=== PATIENT | male | born 1975 | race Hispanic/Latino ===

== ENCOUNTER 2021-03-15 19:25 | Emergency (ER) | payer OTHER, SELFPAY ==
[2021-03-15 19:30] VITALS: BP 161/90; PULSE 67; RESP 16; TEMP 36.1; O2SAT 100; BMI 26.6
--- NOTE | 2021-03-15 20:08 | DI.RAD.S_ITS ---
PROCEDURE: XR HAND RT MIN 3V INDICATIONS: right hand caught in machine, lac 2/3rd digit TECHNIQUE: Three views of the hand(s) acquired. COMPARISON: None. FINDINGS: Bones: Nondisplaced transverse fracture through the 2nd middle phalanx with slight distraction of fracture fragments. There appears to be overlying soft tissue laceration. Proximal and distal interphalangeal joint are intact. No other fractures.. Carpal bones are normally aligned. No suspicious bony lesions. Soft tissues: No suspicious soft tissue calcifications. No radiodense foreign bodies. IMPRESSION: 1. Open fracture of the 2nd middle phalanx. Dictated by: Nenita Turner M.D. on 03/15/2021 at 21:01 Approved by: Nenita Turner M.D. on 03/15/2021 at 21:02
--- NOTE | 2021-03-15 20:09 | PC.NURSE ---
gloves cut off in triage, bleeding controlled, loose gauze placed on 2/3rd digit. CMS intact, increase pain with any movement
[2021-03-15 22:35] VITALS: BP 150/80; PULSE 68; RESP 18; O2SAT 98
[2021-03-15] MEDS: TET,DIPH,PERTUSS(ACELL),VAC/PF 0.5 ML SYRINGE IM (22:47)
--- NOTE | 2021-03-16 00:05 | ED_ITS ---
HPI - Wound/Laceration General Chief Complaint: Wound/Laceration Stated Complaint: RIGHT HAND TWO FINGER LACERATION CUT Time Seen by Provider: 03/16/21 00:05 Mode of arrival: Ambulatory History of Present Illness HPI narrative: 45-year-old right-handed gentleman with no specific medical history was at work this evening at [employer] and got his right hand stuck in 1 of the machines with sharp blades. The blades cut through 2 layers of gloves cut deeply into the right index finger and a superficial cut to the dorsum of the right middle finger. Related Data Previous Rx's Medication Instructions Recorded cephalexin 500 mg capsule 500 mg PO TID #21 cap 03/16/21 oxycodone-acetaminophen 5 mg-325 1 tab PO Q6H PRN #12 tab 03/16/21 mg tablet Allergies Allergy/AdvReac Type Severity Reaction Status Date / Time No Known Drug Allergies Allergy Verified 03/15/21 20:08 Review of Systems Review of Systems Narrative: Pertinent positive and negative findings as per HPI Remainder of review of systems is otherwise unremarkable for Constitutional: Fevers, chills, weakness ENT: No sore throat, neck pain, ear pain CV: Chest pain, palpitations, Respiratory: Cough, wheeze, dyspnea GI: Nausea, vomiting, diarrhea, : Dysuria, hematuria, Patient History Social History Smoking Status: Never smoker Smoking Status: Never smoker Substance Use Type: does not use Exam Narrative Exam Narrative: General: Alert appropriate in no acute distress Respiratory: Able to speak in full sentences, no obvious respiratory distress Skin: No obvious rashes, warm and dry Neurologic: Grossly intact no obvious asymmetries or abnormalities Psych: appropriate insight and affect, cooperative Extremities: Right index finger with dorsal cut all the way through extensor tendons and middle phalanx. He still has good blood flow to the tip of his finger and full sensation to the tip of his finger. Middle finger with superficial laceration to the dorsum going over the D IP joint but not involving the joint the nail bed or any extensor tendons. Neurovascularly intact with this finger. No other injuries are appreciated Initial Vital Signs Initial Vital Signs: Vital Signs Temperature 97.0 F L 03/15/21 19:30 Pulse Rate 67 03/15/21 19:30 Respiratory Rate 16 03/15/21 19:30 Blood Pressure 161/90 H 03/15/21 19:30 Pulse Oximetry 100 03/15/21 19:30 Procedures Laceration Repair Right middle finger: Time of procedure: 07:14 Site: hand Side (If applicable): right Size (cm): 2.5 Description: linear and flap Depth: simple, single layer Local Anesthetic: lidocaine 1% Amount of anesthesia used (mL): 3 Pre-repair: wound explored and deep structures intact Skin layer closed with: nylon Size (cm): 3-0 Number of sutures: 5 Technique: simple, interrupted Right index finger: Time of procedure: 07:16 Site: hand Side (If applicable): right Size (cm): 5.5 Description: linear (Involving the extensor tendons and clean cut through midportion of the middle phalanx. Palmar surface nerves and vasculature are spared) Depth: [id number] (Sparing palmar surface tendons and musculature ) Pre-repair: wound explored and irrigated extensively Skin layer closed with: nylon Size (cm): 3-0 Number of sutures: 5 Technique: simple, interrupted (Skin is closed with no attempt to reapproximate deep structures. Finger is splinted in extension and cory-taped to the middle finger as well) Nerve Block Nerve Block 1: Time of procedure: 07:20 Local Anesthetic: lidocaine 1% Amount of anesthesia used (mL): 5 Side: right Nerve Blocks: digital Procedure Successful: Yes Patient Tolerated Procedure: Well Orthopedic Splinting/Casting Splint is made for right 1st and 2nd fingers: Time of procedure: 07:21 Side: right Upper Extremity Immobilizer: finger (other) Post splinting neuro exam: intact Post splinting vascular exam: intact Placed by: Provider Course Orders Ordered: Discontinued Medications Bacitracin (Bacitracin Oint 0.9 Gm Pckt) 5 applic TOP NOW ONE Stop: 03/16/21 00:20 Last Admin: 03/16/21 00:28 Dose: 5 applic Documented by: ANTHONY Cephalexin HCl (Cephalexin 250 Mg Capsule) 500 mg PO NOW ONE Stop: 03/16/21 00:20 Last Admin: 03/16/21 00:28 Dose: 500 mg Documented by: ANTHONY Diphtheria/Tetanus/Acell Pertussis (Tet,Diph,Pertuss(Acell),Vac/Pf 0.5 Ml Syringe) 0.5 ml IM .ONCE ONE Stop: 03/15/21 20:35 Last Admin: 03/15/21 22:47 Dose: 0.5 ml Documented by: ANTHONY Ibuprofen (Ibuprofen 400 Mg Tablet) 400 mg PO NOW ONE Stop: 03/16/21 00:20 Last Admin: 03/16/21 00:27 Dose: 400 mg Documented by: ANTHONY Lidocaine/Sodium Bicarbonate (Lido 1%/Sod Bicarb 8.4% (10ml) 10 Ml Syringe) 10 ml INJ NOW ONE Stop: 03/16/21 00:20 Last Admin: 03/16/21 00:27 Dose: 10 ml Documented by: ANTHONY Oxycodone/Acetaminophen (Oxycodone/Acetaminophen 5/325 Tablet) 1 tab PO NOW ONE Stop: 03/16/21 00:20 Last Admin: 03/16/21 00:28 Dose: 1 tab Documented by: ANTHONY Oxycodone/Acetaminophen (Oxycodone/Apap 5/325 Prepack) 1 bottle MISC SEEINSTR ONE Stop: 03/16/21 00:20 Last Admin: 03/16/21 00:27 Dose: 1 bottle Documented by: ANTHONY Vital Signs Vital signs: Vital Signs - 8 hr 03/16/21 02:41 Pulse Rate 72 Respiratory Rate 18 Blood Pressure 161/79 H Pulse Oximetry 98 MDM - Wound/Laceration Imaging Data XR Finger: Radiologist's Impression: FINDINGS:? ? Bones:? Nondisplaced transverse fracture through the 2nd middle phalanx with slight distraction of fracture fragments.? There appears to be overlying soft tissue laceration. ?Proximal and distal interphalangeal joint are intact.? No other fractures..? Carpal bones are normally aligned.? No suspicious bony lesions.? ? Soft tissues:? No suspicious soft tissue calcifications.? No radiodense foreign bodies. ? ? IMPRESSION:? 1. Open fracture of the 2nd middle phalanx.? ? ? Dictated by: Nenita Turner M.D. on 03/15/2021 at 21:01 ? ? [facility] Narrative Medical decision making narrative: Otherwise healthy 45-year-old gentleman who had an almost complete amputation of his right index finger and superficial laceration on the dorsal surface of the 2nd finger. The middle phalanx is completely cut in half however the distal portion of the finger tip is receiving good blood flow. The wound is extensively irrigated. Tetanus status is updated. Epithelial edges are closed with simple interrupted sutures in the finger is splinted in extension and instructions are very explicitly given that this gentleman needs to contact [facility] on Thursday to arrange for definitive care with the anticipation that he likely will end up having surgery for the index finger. L and I forms are filled out. Discharge Plan Departure Patient Disposition: Home Clinical Impression: Laceration Fracture of middle phalanx of finger Qualifiers: Encounter type: initial encounter Finger: index finger Fracture type: open Fracture alignment: displaced Laterality: right Qualified Code(s): S62.620B - Displaced fracture of middle phalanx of right index finger, initial encounter for open fracture Extensor tendon laceration of finger with open wound Qualifiers: Encounter type: initial encounter Qualified Code(s): S56.429A - Laceration of extensor muscle, fascia and tendon of unspecified finger at forearm level, initial encounter Instructions: How to Care for a Laceration After Repair, Diphtheria, Tetanus, and Pertussis Vaccine, DI for Laceration Repair, DI for Finger Fracture, DI for Finger Extensor Tendon Injury Activity Restrictions/Additional Instructions: Thank you for coming in today Use 400 mg of ibuprofen and 1 Percocet for severe pain. Use 400 mg of ibuprofen and 1 Tylenol for moderate pain You will need to have surgery on your 1st finger. You need to call [facility] at [phone] and let them know you are in the emergency department and cut through your 1st finger. Make sure you complete all of the antibiotics, Keflex 500 mg 3 times a day Keep the dressing on until you see the orthopedic surgeon If there is increasing redness, pain, drainage or other signs of infection you need to come to the emergency department immediately Alok por venir hoy Use 400 mg de ibuprofeno y 1 Percocet para el dolor intenso. Use 400 mg de ibuprofeno y 1 Tylenol para el dolor moderado Deber? someterse a bo cirug?a en el 1er dedo. Debe llamar a los cirujanos ortop?dicos de Nnamdi Tate al [phone] y hacerles saber que est? en el departamento de emergencias y cortar wells primer dedo. Aseg?rese de completar todos los antibi?ticos, Keflex 500 mg 3 veces al d?a Mantenga el ap?sito puesto hasta que amol al cirujano ortop?dico. Si aumenta el enrojecimiento, el dolor, la secreci?n u otros signos de infecci?n, debe acudir al departamento de emergencias de [facility] Prescriptions: New oxycodone-acetaminophen 5-325 mg tablet 1 tab PO Q6H PRN (Reason: pain) Qty: 12 0RF cephalexin 500 mg capsule 500 mg PO TID Qty: 21 0RF
[2021-03-16] MEDS: IBUPROFEN 400 MG TABLET PO (00:27)
[2021-03-16] MEDS: OXYCODONE/APAP 5/325 PREPACK 1 BOTTLE MISC (00:27)
[2021-03-16] MEDS: LIDO 1%/SOD BICARB 8.4% (10ML) 10 ML SYRINGE INJ (00:27)
[2021-03-16] MEDS: cephALEXin 250 MG CAPSULE 500 MG PO (00:28)
[2021-03-16] MEDS: OXYCODONE/ACETAMINOPHEN 5/325 TABLET 1 TAB PO (00:28)
[2021-03-16] MEDS: BACITRACIN OINT 0.9 GM PCKT 5 APPLIC TOP (00:28)
[2021-03-16 02:41] VITALS: BP 161/79; PULSE 72; RESP 18; O2SAT 98
--- NOTE | 2021-03-16 02:42 | PC.NURSE ---
Dr mao did wound cleaning,suturing, and applied dressing and orthoglass splint,instructions given to him through interpretor phone and in czech writing.
--- NOTE | 2021-03-16 02:44 | PC.NURSE ---
He verbalized pain relief.
== END 2021-03-16 02:40 | disposition home or self-care (01) ==
PROVIDERS: Emergency Provider Emergency Medicine
DX: S62.620B Displaced fracture of middle phalanx of right index finger, initial encounter for open fracture (principal); S61.212A Laceration without foreign body of right middle finger without damage to nail, initial encounter; W31.82XA Contact with other commercial machinery, initial encounter; Y99.0 Civilian activity done for income or pay
CPT/HCPCS: 12001; 13132; 64450; 73130; 90471; 99283; 99284; 90715